=== PATIENT | male | born 1980 | race African-American/Black ===

== ENCOUNTER 2016-08-02 15:06 | Emergency (ER) | payer SELFPAY ==
[~2016-08-02] VITALS: Ht 172.7 cm; Wt 91.0 kg
[2016-08-02 15:08] VITALS: BP 137/68; PULSE 78; RESP 15; TEMP 97.9; O2SAT 98
--- NOTE | 2016-08-02 15:18 | PD ---
Physical Exam Time Seen by Provider: 15:16 Narrative 36yo male requesting checkup for STD. Girlfriend dx w/ trichomoniasis 1 week ago. Patient has lab slip from [facility] w/ neg results for chlamydia and gonorrhea. Denies penile dc, dysuria. Patient stable. Patient seen in triage. Awaiting bed placement. Data Data Last Documented VS Vital Signs Date Time Temp Pulse Resp B/P Pulse Ox O2 Delivery O2 Flow Rate FiO2 08/02/16 15:08 97.9 78 15 137/68 98 MDM Supervised Visit with SAILAJA: Madhavi Cid Aug 02, 2016 15:18
--- NOTE | 2016-08-02 16:42 | PD ---
HPI . STD exposure Chief Complaint: Complaint Time Seen by Provider: 16:41 Travel History International Travel<30 days: No Contact w/Intl Traveler<30days: No Traveled to known affect area: No History of Present Illness HPI 36-year-old male with no significant past medical history here with complaints of being exposed trichomoniasis. Patient says that his significant other was treated for trichomoniasis. He should says he went to the health department and was tested for Chlamydia, gonorrhea, syphilis, HIV, all were negative. He is here requesting treatment for trichomoniasis. He denies any penile discharge or pain. He has no specific complaints. PFSH Past Medical History Medical History: Denies Significant Hx Social History Tobacco Use: No Allergies-Medications (Allergen,Severity, Reaction): Coded Allergies: No Known Allergies (Unverified , 08/02/16) Reported Meds & Prescriptions Reported Meds & Active Scripts Active Flagyl (Metronidazole) 500 Mg Tab 2,000 Mg PO ONCE Review of Systems General / Constitutional: No: Fever Eyes: No: Visual changes HENT: No: Headaches Cardiovascular: No: Chest Pain or Discomfort Respiratory: No: Shortness of Breath Gastrointestinal: No: Abdominal Pain Genitourinary: No: Dysuria Musculoskeletal: No: Pain Skin: No Rash Neurologic: No: Weakness Psychiatric: No: Depression Endocrine: No: Polydipsia Hematologic/Lymphatic: No: Easy Bruising Physical Exam Narrative GENERAL: AAO x 3, no acute distress, Well-nourished, well-developed patient. SKIN: Warm and dry. No visible rashes or bruising. HEAD: Normocephalic and atraumatic. EYES: No scleral icterus. No injection or drainage. ENT: No nasal drainage noted. Mucous membranes pink. Airway patent. NECK: Supple, trachea midline. No JVD. CARDIOVASCULAR: Regular rate and rhythm without murmurs, gallops, or rubs. RESPIRATORY: Breath sounds equal bilaterally. No accessory muscle use. No rhonchi or rales. GASTROINTESTINAL: Abdomen soft, non-tender, nondistended. GENITAL: Martina HILL present: no abn with penis EXTREMITIES: No cyanosis or edema. BACK: Nontender without obvious deformity. No CVA tenderness. PSYCH: AAO x 3, normal affect. Data Data Last Documented VS Vital Signs Date Time Temp Pulse Resp B/P Pulse Ox O2 Delivery O2 Flow Rate FiO2 08/02/16 15:08 97.9 78 15 137/68 98 MDM Medical Decision Making Medical Screen Exam Complete: Yes Emergency Medical Condition: Yes Medical Record Reviewed: Yes Differential Diagnosis STD exposure, exposure trichomoniasis, less likely Chlamydia, less likely gonorrhea Narrative Course 36-year-old male with no significant past medical history here with complaints of being exposed trichomoniasis. Patient says that his significant other was treated for trichomoniasis. He should says he went to the health department and was tested for Chlamydia, gonorrhea, syphilis, HIV, all were negative. He is here requesting treatment for trichomoniasis. He denies any penile discharge or pain. He has no specific complaints. Patient seen and examined. He has no acute findings. Per up to date patient should be treated whether asymptomatic or symptomatic: take 2grams orally once. Patient verbalized understanding of instructions, questions were answered, and thanked me for their care. I advised them if their condition worsens, please return to the nearest emergency room for further care. Diagnosis Primary Impression: Exposure to STD Patient Instructions: General Instructions Additional Instructions: Please return to emergency department if your symptoms return or worsen. Follow up with your primary care provider. Take medications as prescribed. Med/Other Pt SpecificInfo: Prescription(s) given Scripts Metronidazole (Flagyl)500 Mg Tab2,000 Mg PO ONCE #4 TAB Ref 0 Prov:Yanet Lee 08/02/16 Disposition: 01 DISCHARGE HOME Condition: Stable Maddi Castle Aug 02, 2016 16:42
[2016-08-02] MEDS ORDERED: METR-1 PO (16:47)
== END 2016-08-02 17:08 | disposition home or self-care (01) ==
LOC: NEPK 15:06
DX: Z20.2 Contact with and (suspected) exposure to infections with a predominantly sexual mode of transmission (principal)
CPT/HCPCS: 99283